=== PATIENT | female | born 1945 | race Caucasian/White ===

== ENCOUNTER → 2016-03-25 | Outpatient (CLI) | payer OTHER | LOC: FIMAGING 11:22 | DX: Z12.31 Encounter for screening mammogram for malignant neoplasm of breast (principal); Z85.3 Personal history of malignant neoplasm of breast | CPT/HCPCS: G0202 ==

== ENCOUNTER 2016-10-14 19:13 | Emergency (ER) | payer OTHER ==
[2016-10-14 19:26] VITALS: RESP 16; TEMP 98.2
[2016-10-14] MEDS ORDERED: AZITHROMYCIN 250 MG TAB PO ONE (21:08)
--- NOTE | 2016-10-14 21:09 | EDPHY ---
H & P Time Seen by Provider: 10/14/16 20:29 HPI/ROS: CHIEF COMPLAINT: Cough for 2 months HISTORY OF PRESENT ILLNESS: Patient is a cough for 2 months. It was getting better and then started getting worse over the last 3 days. She has had a sore throat and worse and more frequent cough. She was pretty active this last weekend and spent 12 hours with her doing ball room dancing over the weekend without any chest pain or arm weakness. She went to urgent care today for cough but when she told the provider that she had a "few minutes of weakness " in her arms when she was pulling scales out from under her bed at 11:00 a.m. they are concerned about acute coronary syndrome. She denies chest pain or shortness of breath. No hemoptysis. REVIEW OF SYSTEMS: Eye: no change in vision ENT: Mild sore throat for 3 days Cardiac: no chest pain or syncope Pulmonary: HPI Abdomen: no vomiting, diarrhea, abdominal pain Musculoskeletal: no back pain or leg swelling Skin: no rash Neuro: Very mild headache, no neck pain. Constitutional: no fever : no urinary symptoms A comprehensive 10 point review of systems is otherwise negative aside from elements mentioned in the history of present illness. PAST MEDICAL HISTORY: Includes rheumatoid arthritis and hypertriglyceridemia. Lumpectomy in 2007 and hysterectomy 1003. Social history: Former smoker quit in 1977. No recent foreign travel, was in [place] back in August. General Appearance: Alert and conversant, cooperative. Eyes: No scleral icterus. ENT, Mouth: Normal mucous membranes. Pharynx is slightly red but no tonsillar exudate. No uvular swelling. No trismus. Respiratory: Normal respiratory effort, breath sounds equal, lungs are clear to auscultation. Cardiovascular: Regular rate and rhythm. Gastrointestinal: Abdomen is soft and non tender. Neurological: Alert and oriented x3. Normally conversant. Face symmetric, normal movement and sensation in all extremities. Skin: Warm and dry, no rashes. Musculoskeletal: No peripheral edema and no joint swelling. No calf tenderness. normal range of motion of the neck Psychiatric: Not agitated. Emergency Department course/MDM: Patient has acute cough and bronchitis, empiric treatment with azithromycin discussed as she is not up to date on her pertussis vaccine. Normal EKG and troponin, her arm strength is normal now. 5/5 strength in triceps, biceps, wrist extensors, intrinsics. I think acute coronary syndrome or stroke or cervical cord problem is unlikely. Smoking Status: Former smoker Constitutional: Initial Vital Signs Temperature (C) 36.8 C 10/14/16 19:22 Heart Rate 63 10/14/16 19:22 Respiratory Rate 16 10/14/16 19:22 Blood Pressure 141/67 H 10/14/16 19:22 O2 Sat (%) 97 10/14/16 19:22 O2 Delivery Mode Room Air Allergies/Adverse Reactions: No Known Allergies Allergy (Unverified 03/29/14 09:20) Home Medications: Medication Instructions Recorded AZITHROMYCIN [Z-PACK] 250 mg PO DAILY #4 tab 10/14/16 FOLIC ACID 10/14/16 Gemfibrozil 10/14/16 Methotrexate 10/14/16 Medical Decision Making - Diagnostics EKG Interpretation: 12-lead EKG interpreted by me; official reading is in trace master. My interpretation is sinus rhythm rate 59 no ischemic changes. Differential Diagnosis: Differential for cough considered including but not limited to bronchitis, influenza, pneumonia, CHF, medication side effect. - Data Points Laboratory Results: 10/14/16 20:57 Troponin I < 0.012 ng/mL ng/mL (0.000-0.034) Medications Given: Discontinued Medications Azithromycin (Zithromax) 500 mg PO EDNOW ONE PRN Reason: Protocol Stop: 10/14/16 21:09 Last Admin: 10/14/16 21:13 Dose: 500 mg Departure - Departure Disposition: Home, Routine, Self-Care Clinical Impression: Cough Acute bronchitis Qualifiers: Bronchitis organism: unspecified organism Qualified Code(s): J20.9 - Acute bronchitis, unspecified Condition: Good Instructions: Acute Cough (ED) Referrals: Rolan Barros MD [Primary Care Provider] - As per Instructions Prescriptions: AZITHROMYCIN [Z-PACK] 250 mg PO DAILY #4 tab
--- NOTE | 2016-10-14 21:14 | CPEKG ---
Heart Rate: 59 RR Interval: 1017 P-R Interval: 136 QRSD Interval: 74 QT Interval: 400 QTC Interval: 397 P [place]: 37 QRS [place]: 65 T Wave [place]: 48 EKG Severity - NORMAL ECG - EKG Impression: SINUS RHYTHM Electronically Signed By: Reuben Diaz 14-Oct-2016 21:17:57
[2016-10-14 22:15] VITALS: BP 126/77; PULSE 66; O2SAT 96
== END 2016-10-14 22:14 | disposition home or self-care (01) ==
DX: J20.9 Acute bronchitis, unspecified (principal); Z87.891 Personal history of nicotine dependence

== ENCOUNTER → 2016-10-27 | Outpatient (CLI) | payer OTHER | LOC: BMCIMAGING 13:58 | PROVIDERS: ATTEND Internal Medicine | DX: J98.01 Acute bronchospasm (principal); R05 Cough | CPT/HCPCS: G0463-PO ==

== ENCOUNTER → 2016-10-30 | Outpatient (CLI) | payer OTHER | LOC: FIMAGING 11:02 | PROVIDERS: ATTEND Internal Medicine Rheumatology | DX: M81.0 Age-related osteoporosis without current pathological fracture (principal) ==

== ENCOUNTER 2017-01-23 14:04 | Observation (INO) | payer OTHER ==
[2017-01-23] MEDS ORDERED: ONDANSETRON 4 MG/2 ML VIAL IVP ONE (15:41)
[2017-01-23 15:47] LABS: % IMMATURE GRANULYOCYTES 0.4 % (0.0-1.1); ABSOLUTE IMMATURE GRANULOCYTES 0.03 10^3/uL (0.00-0.10); ADD DIFF? NO; ADD MORPH? NO; ADD SCAN? NO; ATYPICAL LYMPHOCYTE FLAG 20 (0-99); FRAGMENT RBC FLAG 0 (0-99); HEMATOCRIT 35.2 % (38.0-47.0); HEMOGLOBIN 11.9 g/dL (12.6-16.3); LEFT SHIFT FLG 0 (0-99); LIPEMIA HEMOLYSIS FLAG 90 (0-99); MEAN CELL HEMOGLOBIN 31.9 pg (27.9-34.1); MEAN CELL HEMOGLOBIN CONCENTR. 33.8 g/dL (32.4-36.7); MEAN CELL VOLUME 94.4 fL (81.5-99.8); MEAN PLATELET VOLUME 9.3 fL (8.7-11.7); PLATELET CLUMPS FLAG 0 (0-99); PLATELET COUNT 272 10^3/uL (150-400); RED BLOOD CELL COUNT 3.73 10^6/uL (4.18-5.33); RED CELL DISTRIBUTION WIDTH 14.3 % (11.5-15.2)
[2017-01-23] MEDS ORDERED: NS 1,000 ML IV ONE (15:51)
--- NOTE | 2017-01-23 15:51 | EDPHY ---
H & P Stated Complaint: FEVER, COUGH, BODY ACHES FOR ONE WEEK HPI/ROS: HPI CHIEF COMPLAINT: Fever cough, body aches HISTORY OF PRESENT ILLNESS: This patient is a 71-year-old female, presents emergency room with worsening cough muscle aches and joint pain. Patient reports she recently saw her primary care doctor 2 days ago and was diagnosed with a sinus infection started on Augmentin. She states for the past 5 months she has had a chronic cough however over the last week she has had a worsening cough with productive sputum green color in nature, with a fever today of 101, additionally had muscle aches and joint pain. She states she feels unwell. She denies any vomiting. Denies diarrhea. Denies chest pain. Denies any significant shortness of breath. Of note upon arrival to the emergency room she is noted to be hypoxic 86%. Past Medical History: High triglycerides, rheumatoid arthritis on methotrexate Past Surgical History: Lumpectomy, hysterectomy Social History: Denies daily use of drugs alcohol tobacco products. Family History: Noncontributory ROS REVIEW OF SYSTEMS: A comprehensive 10 point review of systems is otherwise negative aside from elements mentioned in the history of present illness. Exam Constitutional appears nontoxic triage nursing summary reviewed, vital signs reviewed, awake/alert. Vital signs noted to be hypoxic. 86%. Eyes normal conjunctivae and sclera, EOMI, PERRLA. HENT normal inspection, atraumatic, moist mucus membranes, no epistaxis, neck supple/ no meningismus, no raccoon eyes. Respiratory bronchitic sounding cough, clear to auscultation bilaterally, normal breath sounds, no respiratory distress, no wheezing. Cardiovascular rate normal, regular rhythm, no murmur, no edema, distal pulses normal. Gastrointestinal soft, non-tender, no rebound, no guarding, normal bowel sounds, no distension, no pulsatile mass. Genitourinary no CVA tenderness. Musculoskeletal no midline vertebral tenderness, full range of motion, no calf swelling, no tenderness of extremities, no meningismus, good pulses, neurovascularly intact. Skin pink, warm, & dry, no rash, skin atraumatic. Neurologic awake, alert and oriented x 3, AAOx3, moves all 4 extremities equally, motor intact, sensory intact, CN II-XII intact, normal cerebellar, normal vision, normal speech. Psychiatric normal mood/affect. Heme/Lymph/Immune no lymphadenopathy. Differential Diagnosis: Includes but is not limited to in a particular order pneumonia, sepsis, bacteremia, dehydration, electrolyte disturbance, pulmonary embolism, CHF, influenza Medical Decision Making: Plan for this patient IV establishment IV fluid bolus , full nurse monitoring, EKG, supplemental oxygen, lactic acid, blood cultures, two view chest x-ray to rule pneumonia, check influenza re-evaluate. Re-evaluation: EKG interpretation by me on record in [facility] system. Impression time of EKG 16 , this is sinus rhythm rate of 71. There is no acute ischemic changes. Q-waves noted V1 V2 V3. Otherwise no ST elevation. Patient's chest x-ray two view reviewed. This shows a left lower lobe pneumonia. Patient be hospitalized for pneumonia in the setting of hypoxia. I have ordered her IV Rocephin and IV azithromycin. Blood cultures have been pulled as well as lactic acid. She is receiving a fluid bolus. 1711: Patient influenza a positive. Also left lower lobe pneumonia. Will give a dose of Tamiflu. Source: Patient - Personal History Current Tetanus Diphtheria and Acellular Pertussis (TDAP): Yes Tetanus Vaccine Date: < 10 YEARS - Medical/Surgical History Hx Asthma: No Hx Chronic Respiratory Disease: No Hx Diabetes: No Hx Cardiac Disease: No Hx Renal Disease: No Hx Cirrhosis: No Hx Alcoholism: No Hx HIV/AIDS: No Hx Splenectomy or Spleen Trauma: No Other PMH: RHEUMATOID ARTHRITIS, BRONCHOSPASMS - Social History Smoking Status: Former smoker Constitutional: Initial Vital Signs Temperature (C) 37.5 C 01/23/17 14:16 Heart Rate 76 01/23/17 14:16 Respiratory Rate 16 01/23/17 14:16 Blood Pressure 99/54 L 01/23/17 14:16 O2 Sat (%) 86 L 01/23/17 14:16 O2 Delivery Mode Room Air Allergies/Adverse Reactions: No Known Allergies Allergy (Unverified 03/29/14 09:20) Home Medications: Medication Instructions Recorded Folic Acid [Folic Acid 1 MG (*)] 2 mg PO DAILY 10/14/16 Gemfibrozil [Lopid 600 MG (*)] 600 mg PO BIDAC 10/14/16 Methotrexate Sodium [Rheumatrex] 10 mg PO MO 10/14/16 Albuterol [Proventil Inhaler HFA 2 puffs IH Q4 PRN 12/16/17 (*)] Amox Tr/K Clav (Augmentin) 500 mg PO Q8 01/23/17 [Augmentin 500/125 MG TAB (*)] Montelukast Sodium [Singulair 10 10 mg PO DAILY 01/23/17 mg (*)] Medical Decision Making - Diagnostics Imaging Results: Imaging Impressions Chest X-Ray 01/23/17 15:51 Impression: Left lower lobe pneumonia. - Data Points Laboratory Results: Laboratory Results 01/23/17 15:30 01/23/17 15:30 01/23/17 01/23/17 01/23/17 16:05 15:50 15:30 WBC RBC Hgb Hct MCV MCH MCHC RDW Plt Count MPV Neut % (Auto) Lymph % (Auto) [place] % (Auto) Eos % (Auto) Baso % (Auto) Nucleat RBC Rel Count Absolute Neuts (auto) Absolute Lymphs (auto) Absolute Monos (auto) Absolute Eos (auto) Absolute Basos (auto) Absolute Nucleated RBC Immature Gran % Immature Gran # PT 14.8 SEC SEC (12.0-15.0) INR 1.14 (0.83-1.16) APTT 34.3 SEC SEC (23.0-38.0) VBG Lactic Acid 1.0 mmol/L mmol/L (0.7-2.1) Sodium Potassium Chloride Carbon Dioxide Anion Gap BUN Creatinine Estimated GFR Glucose Calcium Magnesium Total Bilirubin Conjugated Bilirubin Unconjugated Bilirubin AST ALT Alkaline Phosphatase Creatine Kinase CK-MB (CK-2) Fraction Troponin I NT-Pro-B Natriuret Pep Total Protein Albumin Lipase Nasal Influenza A PCR FLU A DETECTED (NEGATIVE) Nasal Influenza B PCR NEGATIVE FOR FLU B (NEGATIVE) 01/23/17 01/23/17 15:30 15:30 WBC 8.18 10^3/uL 10^3/uL (3.80-9.50) RBC 3.73 10^6/uL L 10^6/uL (4.18-5.33) Hgb 11.9 g/dL L g/dL (12.6-16.3) Hct 35.2 % L % (38.0-47.0) MCV 94.4 fL fL (81.5-99.8) MCH 31.9 pg pg (27.9-34.1) MCHC 33.8 g/dL g/dL (32.4-36.7) RDW 14.3 % % (11.5-15.2) Plt Count 272 10^3/uL 10^3/uL (150-400) MPV 9.3 fL fL (8.7-11.7) Neut % (Auto) 81.2 % H % (39.3-74.2) Lymph % (Auto) 8.8 % L % (15.0-45.0) [place] % (Auto) 9.4 % % (4.5-13.0) Eos % (Auto) 0.0 % L % (0.6-7.6) Baso % (Auto) 0.2 % L % (0.3-1.7) Nucleat RBC Rel Count 0.0 % % (0.0-0.2) Absolute Neuts (auto) 6.64 10^3/uL H 10^3/uL (1.70-6.50) Absolute Lymphs (auto) 0.72 10^3/uL L 10^3/uL (1.00-3.00) Absolute Monos (auto) 0.77 10^3/uL 10^3/uL (0.30-0.80) Absolute Eos (auto) 0.00 10^3/uL L 10^3/uL (0.03-0.40) Absolute Basos (auto) 0.02 10^3/uL 10^3/uL (0.02-0.10) Absolute Nucleated RBC 0.00 10^3/uL 10^3/uL (0-0.01) Immature Gran % 0.4 % % (0.0-1.1) Immature Gran # 0.03 10^3/uL 10^3/uL (0.00-0.10) PT INR APTT VBG Lactic Acid Sodium 139 mEq/L mEq/L (134-144) Potassium 3.7 mEq/L mEq/L (3.5-5.2) Chloride 97 mEq/L mEq/L (97-110) Carbon Dioxide 27 mEq/l mEq/l (22-31) Anion Gap 15 mEq/L mEq/L (8-16) BUN 20 mg/dL mg/dL (7-23) Creatinine 0.8 mg/dL mg/dL (0.6-1.0) Estimated GFR > 60 Glucose 99 mg/dL mg/dL (70-100) Calcium 9.0 mg/dL mg/dL (8.5-10.4) Magnesium 2.3 mg/dL mg/dL (1.6-2.3) Total Bilirubin 0.7 mg/dL mg/dL (0.1-1.4) Conjugated Bilirubin 0.4 mg/dL mg/dL (0.0-0.5) Unconjugated Bilirubin 0.3 mg/dL mg/dL (0.0-1.1) AST 44 IU/L IU/L (14-46) ALT 33 IU/L IU/L (9-52) Alkaline Phosphatase 82 IU/L IU/L (38-126) Creatine Kinase 96 IU/L IU/L (0-156) CK-MB (CK-2) Fraction 0.92 ng/mL ng/mL (0.00-3.19) Troponin I < 0.012 ng/mL ng/mL (0.000-0.034) NT-Pro-B Natriuret Pep 1740 pg/mL H pg/mL (0-125) Total Protein 7.0 g/dL g/dL (6.3-8.2) Albumin 3.8 g/dL g/dL (3.5-5.0) Lipase 70 IU/L IU/L (23-300) Nasal Influenza A PCR Nasal Influenza B PCR Medications Given: Ceftriaxone Sodium/Dextrose (Rocephin 1 Gm (Premix)) 50 mls @ 100 mls/hr IV EDNOW ONE PRN Reason: Protocol Stop: 01/23/17 17:28 Last Admin: 01/23/17 17:07 Dose: 50 mls Discontinued Medications Sodium Chloride (Ns) 1,000 mls @ 0 mls/hr IV EDNOW ONE; Wide Open PRN Reason: Protocol Stop: 01/23/17 15:52 Last Admin: 01/23/17 16:04 Dose: 1,000 mls Ondansetron HCl (Zofran) 4 mg IVP EDNOW ONE Stop: 01/23/17 15:42 Last Admin: 01/23/17 15:48 Dose: 4 mg Departure - Departure Disposition: [facility] Acute Clinical Impression: Hypoxia, Influenza A Pneumonia Qualifiers: Pneumonia type: due to unspecified organism Laterality: left Lung location: lower lobe of lung Qualified Code(s): J18.1 - Lobar pneumonia, unspecified organism Condition: Fair Referrals: Rolan Barros MD [Primary Care Provider] - As per Instructions
[2017-01-23 16:06] LABS: ALANINE AMINOTRANSFERASE 33 IU/L (9-52); ALBUMIN 3.8 g/dL (3.5-5.0); ALKALINE PHOSPHATASE 82 IU/L (38-126); ANION GAP 15 mEq/L (8-16); ASPARTATE AMINOTRANSFERASE 44 IU/L (14-46); BILIRUBIN,TOTAL 0.7 mg/dL (0.1-1.4); BILIRUBIN-CONJUGATED 0.4 mg/dL (0.0-0.5); BILIRUBIN-UNCONJUGATED 0.3 mg/dL (0.0-1.1); CARBON DIOXIDE 27 mEq/l (22-31); CHLORIDE 97 mEq/L (97-110); CREATININE 0.8 mg/dL (0.6-1.0); GLOMERULAR FILTRATION RATE > 60; GLUCOSE 99 mg/dL (70-100); MAGNESIUM 2.3 mg/dL (1.6-2.3); POTASSIUM 3.7 mEq/L (3.5-5.2); SODIUM 139 mEq/L (134-144)
[2017-01-23 16:12] LABS: INR 1.14 (0.83-1.16); PROTIME(PATIENT) 14.8 SEC (12.0-15.0)
[2017-01-23 16:13] LABS: APTT 34.3 SEC (23.0-38.0)
[2017-01-23 16:18] LABS: CREATINE KINASE-MB FRACTION 0.92 ng/mL (0.00-3.19); TROPONIN I < 0.012 ng/mL (0.000-0.034)
--- NOTE | 2017-01-23 16:21 | CPEKG ---
Heart Rate: 71 RR Interval: 845 P-R Interval: 136 QRSD Interval: 80 QT Interval: 384 QTC Interval: 418 P [place]: 36 QRS [place]: 76 T Wave [place]: 51 EKG Severity - NORMAL ECG - EKG Impression: SINUS RHYTHM Electronically Signed By: Maximilian Quispe 23-Jan-2017 22:51:04
[2017-01-23] MEDS ORDERED: AZITHROMYCIN IV 500 MG in D5W 250 ML IV ONE (16:59)
[2017-01-23] MEDS ORDERED: ACETAMINOPHEN 500 MG TAB ONE (17:30)
[2017-01-23] MEDS ORDERED: ACETAMINOPHEN 325 MG TAB PO PRN (17:45)
[2017-01-23] MEDS ORDERED: ONDANSETRON 4 MG/2 ML VIAL IVP PRN (17:45)
[2017-01-23] MEDS ORDERED: ONDANSETRON DISINTEGRATING 4 MG TAB PO PRN (17:45)
[2017-01-23] MEDS ORDERED: ACETAMINOPHEN 500 MG TAB PO ONE (17:46)
[2017-01-23] MEDS ORDERED: ALBUTEROL 60 PUFFS/8 GM MDI IH PRN (17:48)
[2017-01-23] MEDS ORDERED: HYDROcodone/CPM TUSSIONEX 5 ML UDSYR PO PRN (17:49)
--- NOTE | 2017-01-23 18:38 | GHP ---
[f rep st] HISTORY AND PHYSICAL DATE OF ADMISSION: 01/23/2017 CHIEF COMPLAINT: Cough. HISTORY OF PRESENT ILLNESS: A 71-year-old female with somewhat chronic cough, presents with acute wo rsening over the last few days associated with productive sputum, shortness of breath, fevers and brigette lgias. She was diagnosed with a sinus infection 2 days ago, started on Augmentin, but has not improv ed. She has a history of rheumatoid arthritis. PAST MEDICAL/SURGICAL HISTORY: 1. Rheumatoid arthritis. 2. Hypertriglyceridemia. 3. Recent episode of shingles, currently off Valtrex. 4. Lumpectomy. 5. Hysterectomy. MEDICATIONS: Please see medication reconciliation. ALLERGIES: No known drug allergies. FAMILY HISTORY: No rheumatoid arthritis in the family. SOCIAL HISTORY: She practices choreographed ballroom dancing. She does not drink or smoke. REVIEW OF SYSTEMS: A 10-point review of systems is conducted and is negative except per HPI. PHYSICAL EXAMINATION: VITAL SIGNS: Blood pressure 99/54, heart rate 76, respiration rate 16, satura ting 86% on room air. Temperature is 37.5. GENERAL: The patient is a pleasant female who is restin g comfortably. No acute distress. HEENT: Shows her to be normocephalic, atraumatic. CARDIOVASCULA R: Regular rate and rhythm. No murmurs, rubs, or gallops. PULMONARY: Lungs clear to auscultation bilaterally. ABDOMEN: Soft, nontender, nondistended. SKIN: Shows no rash. GENITOURINARY: Shows no [place]. NEUROLOGIC: Shows her to be alert and oriented x3. She is moving a ll extremities. PSYCHIATRIC: Shows normal mood and affect. LABORATORY: Hemoglobin 11.9, INR is normal, blood lactate 1.00, BNP is 1740. Influenza A PCR is posi tive. DATA: 1. I discussed this with Dr. Quispe in the emergency department. We will admit to med/surg. 2. I personally viewed and interpreted her chest x-ray. This shows a very small left lower lobe inf iltrate. 3. EKG, which I personally viewed and interpreted, shows sinus rhythm. Normal EKG. IMPRESSION/PLAN: 1. Influenza A positive: We will treat her with Tamiflu. She has a small infiltrate in the left ba se on her x-ray. She has received antibiotics in the emergency department. I will not continue antib acterials for now; however, will check a procalcitonin. If this is markedly elevated, would empirica lly treat her for a bacterial pneumonia. She had been taking Augmentin. I will hold this at this po int. 2. Hypoxia: This is likely due to underlying bronchospasm as well as influenza. We will place her on supplemental oxygen as needed and follow closely. 3. Rheumatoid arthritis: Quiescent at this time. Continue methotrexate. 4. Recent diagnosis of shingles: She is currently off antivirals. 5. Hypertriglyceridemia: Gemfibrozil. /[id number]/MODL
[2017-01-23] MEDS ORDERED: OSELTAMIVIR PHOSPHATE 75 MG CAP ONE (20:28)
[2017-01-23] MEDS: OSELTAMIVIR PHOSPHATE 75 MG CAP PO SCH (20:32)
[2017-01-23] MEDS: guaiFENesin 600 MG TAB.ER PO SCH (21:40)
[2017-01-24 06:55] LABS: COLOR YELLOW; LEUKOCYTE ESTERASE,URINE NEGATIVE (NEGATIVE); NITRITE,URINE NEGATIVE (NEGATIVE)
[2017-01-24] MEDS ORDERED: GEMFIBROZIL 600 MG TAB PO SCH (07:30)
[2017-01-24 07:35] VITALS: BP 105/50; PULSE 70; RESP 16; TEMP 98.8; O2SAT 95
[2017-01-24] MEDS: OSELTAMIVIR PHOSPHATE 75 MG CAP PO SCH (07:55)
[2017-01-24] MEDS ORDERED: MONTELUKAST SODIUM 10 MG TAB PO SCH (09:00)
[2017-01-24] MEDS ORDERED: ENOXAPARIN 40 MG/0.4 ML SYR SC SCH (09:00)
[2017-01-24] MEDS: guaiFENesin 600 MG TAB.ER PO SCH (10:12)
--- NOTE | 2017-01-24 14:10 | GDS ---
[f rep st] DISCHARGE SUMMARY DISCHARGE DIAGNOSIS: Influenza A. PHYSICAL EXAM: GENERAL: The patient is alert. VITAL SIGNS: Afebrile at 37.1, pulse is 70, respira tory rate 16, blood pressure is 105/50, she is saturating greater than 90% on room air. I have seen and evaluated the patient on the day of discharge. HOSPITAL COURSE: The patient is a 71-year-old female who presented to the emergency with complaints of cough. She was evaluated and diagnosed with influenza A. During this hospitalization, she receiv ed supportive care. She was initiated on Tamiflu, and is feeling significantly better. She does hav e a history of rheumatoid arthritis, as well as shingles. She will continue her outpatient medicatio ns and follow up with her primary care provider. DISCHARGE MEDICATIONS: Again, I have provided her a prescription for Tamiflu. I have not adjusted t he patient's previously prescribed home medications. /[id number]/MODL
--- NOTE | 2017-01-24 16:29 | ASDISCHSUM ---
Discharge Information Plan Status:Home with No Needs Medically Cleared to Leave:01/23/2017 Discharge Date:01/24/2017 11:58 AM CM D/C Disposition: ADT D/C Disposition:Home, Routine, Self-Care Projected Discharge Date:01/24/2017 12:00 AM Transportation at D/C: Discharge Delay Reason: Follow-Up Date:01/24/2017 12:00 AM Discharge Slot: Final Diagnosis: Placement Information Patient Contact Information Contact Name:MELE Relationship: Address:[address] City:[place] Alternate Phone: [facility]/Zip Code:[place] [address] Email: Financial Information Financial Class:[facility] Primary Plan Desc:MEDICARE OUTPATIENT Primary Plan Number:[id number] Secondary Plan Desc:TERENCE KATZ PPO Secondary Plan Number:[id number] Assessment Information Intervention Information
[2017-01-25] MEDS ORDERED: METHOTREXATE 2.5 MG TAB PO SCH (17:48)
== END 2017-01-24 11:58 | disposition home or self-care (01) ==
LOC: F3E 01-24 01:12
PROVIDERS: ADMIT Student in an Organized Health Care Education/Training Program; ATTEND Student in an Organized Health Care Education/Training Program
DX: J10.1 Influenza due to other identified influenza virus with other respiratory manifestations (principal)
CPT/HCPCS: 71020; 93005; G0378; J0456; J0696; J2405; 96365

== ENCOUNTER → 2017-03-26 | Outpatient (CLI) | payer OTHER | LOC: FIMAGING 10:45 | PROVIDERS: ATTEND Internal Medicine Hematology & Oncology | DX: Z12.31 Encounter for screening mammogram for malignant neoplasm of breast (principal); Z85.3 Personal history of malignant neoplasm of breast ==

== ENCOUNTER → 2018-03-29 | Outpatient (CLI) | payer OTHER | LOC: FIMAGING 11:05 | PROVIDERS: ATTEND Internal Medicine Hematology & Oncology | DX: Z12.31 Encounter for screening mammogram for malignant neoplasm of breast (principal); Z85.3 Personal history of malignant neoplasm of breast ==